=== PATIENT | female | born 1950 | race Two or more races ===

== ENCOUNTER 2019-08-24 07:51 | Outpatient (CLI) | payer OTHER | END 2019-08-24 08:01 | disposition home or self-care (01) | LOC: EDBD 07:51 → NUCLEAR 07:51 | DX: I25.6 Silent myocardial ischemia (principal); I25.10 Atherosclerotic heart disease of native coronary artery without angina pectoris | CPT/HCPCS: 78452; 93017; A9500; J0153 ==